=== PATIENT | female | born 1995 | race African-American/Black ===

== ENCOUNTER 2019-02-11 23:35 | Emergency (ER) | payer SELFPAY ==
--- NOTE | 2019-02-11 23:37 | ER Report ---
History and Physical Time Seen By MD: 23:37 HPI/ROS CHIEF COMPLAINT: Abdominal pain, vomiting HISTORY OF PRESENT ILLNESS: 23-year-old black female presents ambulatory to the ER complaining of severe epigastric pain and vomiting after eating at all, but at [place]. It's onset proximal 2 hours afterwards. She began vomiting. She feels dizzy. She complains of 6/10 crampy pain without radiation. She notes no diarrhea. She denies fever or chills. She denies dysuria. She's had no previous abdominal surgeries. Patient's currently on her menstrual period REVIEW OF SYSTEMS: Respiratory: No cough, no dyspnea. Cardiovascular: No chest pain, no palpitations. Gastrointestinal: As above Musculoskeletal: No back pain. Allergies: Coded Allergies: shellfish derived (Verified Allergy, Severe, ANAPHALAXSIS, 02/11/19) Home Meds Active Scripts Promethazine Hcl (PROMETHAZINE HCL) 25 Mg Tablet, 25 MG PO Q4H PRN for NAUSEA/VOMITING, #12 TAB Prov:REY PAUL DO 02/12/19 Reported Medications Ferrous Sulfate, Dried (IRON) 159 Mg Tablet.er, PO QDAY 02/11/19 Folic Acid (FOLIC ACID) 1 Mg Tablet, PO QDAY, TAB 02/11/19 [ Control] No Conflict Check, 1 TAB PO QDAY 02/11/19 Past Medical/Surgical History History of kidney disease, history of iron deficiency anemia Reviewed Nurses Notes: Yes Old Medical Records Reviewed: Yes Constitutional Vital Sign - Last 24 Hours 02/11/19 02/11/19 02/12/19 02/12/19 23:39 23:45 00:00 00:15 Temp 97.8 Pulse 91 83 77 81 Resp 16 B/P (MAP) 128/82 116/81 (93) Pulse Ox 93 94 99 94 02/12/19 02/12/19 02/12/19 00:30 00:45 01:00 Pulse 79 80 78 Resp 16 B/P (MAP) 114/77 (89) 112/67 (82) Pulse Ox 92 91 93 O2 Delivery Room Air Intake and Output 02/11/19 02/11/19 02/12/19 15:00 23:00 07:00 Intake Total 1000 ml Balance 1000 ml Physical Exam General Appearance: The patient is alert, has no immediate need for airway protection and no current signs of toxicity. Vital signs stable, afebrile, pulse ox normal Eyes: Pupils equal and round no injection. Respiratory: Chest is non tender, lungs are clear to auscultation. Cardiac: regular rate and rhythm Gastrointestinal: Abdomen is soft and non tender, no masses, bowel sounds normal. Musculoskeletal: Neck: Neck is supple and non tender. Extremities have full range of motion and are non tender. Skin: No rashes or lesions. DIFFERENTIAL DIAGNOSIS: After history and physical exam differential diagnosis was considered for abdominal pain including but not limited to appendicitis, cholecystitis, gastritis, food poisoning, gastroenteritis, viral syndrome and urinary tract infection. Medical Decision Making Data Points Result Diagram: 02/11/19 2345 02/11/19 2345 Laboratory Hematology Test 02/11/19 23:45 02/12/19 00:46 Red Blood Count 4.36 M/uL (4.17-5.56) Mean Corpuscular Volume 75.8 fL (80.0-96.0) Mean Corpuscular Hemoglobin 24.1 pg (26.0-33.0) Mean Corpuscular Hemoglobin Concent 31.8 g/dL (32.0-36.0) Red Cell Distribution Width 22.5 % (11.5-14.5) Mean Platelet Volume 8.8 fL (7.2-11.1) Neutrophils (%) (Auto) 49.8 % (39.4-72.5) Lymphocytes (%) (Auto) 39.9 % (17.6-49.6) Monocytes (%) (Auto) 7.4 % (4.1-12.4) Eosinophils (%) (Auto) 2.1 % (0.4-6.7) Basophils (%) (Auto) 0.8 % (0.3-1.4) Nucleated RBC Relative Count (auto) 0.2 /100WBC Neutrophils # (Auto) 3.9 K/uL (2.0-7.4) Lymphocytes # (Auto) 3.1 K/uL (1.3-3.6) Monocytes # (Auto) 0.6 K/uL (0.3-1.0) Eosinophils # (Auto) 0.2 K/uL (0.0-0.5) Basophils # (Auto) 0.1 K/uL (0.0-0.1) Nucleated RBC Absolute Count (auto) 0.02 K/uL Peripheral Blood Smear Yes Y/N Sodium Level 135 mmol/L (137-145) Potassium Level 3.8 mmol/L (3.5-5.0) Chloride Level 104 mmol/L (98-107) Carbon Dioxide Level 26 mmol/L (22-31) Blood Urea Nitrogen 11 mg/dl (7-18) Creatinine 1.00 mg/dl (0.52-1.04) Glomerular Filtration Rate Calc > 60.0 Random Glucose 94 mg/dl (75-110) Calcium Level 9.5 mg/dl (8.4-10.2) Total Bilirubin 0.2 mg/dl (0.2-1.3) Aspartate Amino Transf (AST/SGOT) 57 U/L (0-35) Alanine Aminotransferase (ALT/SGPT) 53 U/L (0-56) Alkaline Phosphatase 97 U/L (0-126) Total Protein 7.6 g/dl (6.3-8.2) Albumin 4.3 g/dl (3.5-5.0) Amylase Level 92 U/L (0-110) Lipase 99 U/L (23-300) Urine Color [place] Urine Clarity Cloudy Urine pH 6.0 pH (4.8-9.5) Urine Specific [place] 1.021 Urine Protein Negative mg/dL (NEGATIVE) Urine Glucose (UA) Negative mg/dL (NEGATIVE) Urine Ketones Trace mg/dL (NEGATIVE) Urine Blood Small (NEGATIVE) Urine Nitrite Negative (NEGATIVE) Urine Bilirubin Negative (NEGATIVE) Urine Urobilinogen 0.2 mg/dL (0.2-1.9) Urine Leukocyte Esterase Negative (NEGATIVE) Urine RBC 3 /HPF (0-2/HPF) Urine WBC 3 /HPF (0-5/HPF) Urine Squamous Epithelial Cells Many /LPF (</=FEW) Urine Bacteria Negative /HPF (NONE-FEW) Urine Mucus Few /HPF (NONE-FEW) Urine HCG, Qualitative Negative (NEGATIVE) Chemistry Test 02/11/19 23:45 02/12/19 00:46 White Blood Count 7.7 k/uL (4.5-11.0) Red Blood Count 4.36 M/uL (4.17-5.56) Hemoglobin 10.5 g/dL (12.0-16.0) Hematocrit 33.0 % (34.0-47.0) Mean Corpuscular Volume 75.8 fL (80.0-96.0) Mean Corpuscular Hemoglobin 24.1 pg (26.0-33.0) Mean Corpuscular Hemoglobin Concent 31.8 g/dL (32.0-36.0) Red Cell Distribution Width 22.5 % (11.5-14.5) Platelet Count 289 K/uL (150-450) Mean Platelet Volume 8.8 fL (7.2-11.1) Neutrophils (%) (Auto) 49.8 % (39.4-72.5) Lymphocytes (%) (Auto) 39.9 % (17.6-49.6) Monocytes (%) (Auto) 7.4 % (4.1-12.4) Eosinophils (%) (Auto) 2.1 % (0.4-6.7) Basophils (%) (Auto) 0.8 % (0.3-1.4) Nucleated RBC Relative Count (auto) 0.2 /100WBC Neutrophils # (Auto) 3.9 K/uL (2.0-7.4) Lymphocytes # (Auto) 3.1 K/uL (1.3-3.6) Monocytes # (Auto) 0.6 K/uL (0.3-1.0) Eosinophils # (Auto) 0.2 K/uL (0.0-0.5) Basophils # (Auto) 0.1 K/uL (0.0-0.1) Nucleated RBC Absolute Count (auto) 0.02 K/uL Peripheral Blood Smear Yes Y/N Glomerular Filtration Rate Calc > 60.0 Calcium Level 9.5 mg/dl (8.4-10.2) Total Bilirubin 0.2 mg/dl (0.2-1.3) Aspartate Amino Transf (AST/SGOT) 57 U/L (0-35) Alanine Aminotransferase (ALT/SGPT) 53 U/L (0-56) Alkaline Phosphatase 97 U/L (0-126) Total Protein 7.6 g/dl (6.3-8.2) Albumin 4.3 g/dl (3.5-5.0) Amylase Level 92 U/L (0-110) Lipase 99 U/L (23-300) Urine Color [place] Urine Clarity Cloudy Urine pH 6.0 pH (4.8-9.5) Urine Specific [place] 1.021 Urine Protein Negative mg/dL (NEGATIVE) Urine Glucose (UA) Negative mg/dL (NEGATIVE) Urine Ketones Trace mg/dL (NEGATIVE) Urine Blood Small (NEGATIVE) Urine Nitrite Negative (NEGATIVE) Urine Bilirubin Negative (NEGATIVE) Urine Urobilinogen 0.2 mg/dL (0.2-1.9) Urine Leukocyte Esterase Negative (NEGATIVE) Urine RBC 3 /HPF (0-2/HPF) Urine WBC 3 /HPF (0-5/HPF) Urine Squamous Epithelial Cells Many /LPF (</=FEW) Urine Bacteria Negative /HPF (NONE-FEW) Urine Mucus Few /HPF (NONE-FEW) Urine HCG, Qualitative Negative (NEGATIVE) Urinalysis Test 02/12/19 00:46 Urine Color [place] Urine Clarity Cloudy Urine pH 6.0 pH (4.8-9.5) Urine Specific [place] 1.021 Urine Protein Negative mg/dL (NEGATIVE) Urine Glucose (UA) Negative mg/dL (NEGATIVE) Urine Ketones Trace mg/dL (NEGATIVE) Urine Blood Small (NEGATIVE) Urine Nitrite Negative (NEGATIVE) Urine Bilirubin Negative (NEGATIVE) Urine Urobilinogen 0.2 mg/dL (0.2-1.9) Urine Leukocyte Esterase Negative (NEGATIVE) Urine RBC 3 /HPF (0-2/HPF) Urine WBC 3 /HPF (0-5/HPF) Urine Squamous Epithelial Cells Many /LPF (</=FEW) Urine Bacteria Negative /HPF (NONE-FEW) Urine Mucus Few /HPF (NONE-FEW) Urine HCG, Qualitative Negative (NEGATIVE) ED Course/Re-evaluation Clinical Indication for ER IV: Hydration, IV Access ED Course Patient was admitted to an examination room. H&P was done. The differential diagnoses was considered. Patient with a benign abdominal examination. She is treated with IV fluid hydration, Zofran and Toradol. Her laboratory studies are unremarkable. Patient's advised clear liquid diet for 24-48 hours. She is given a prescription for Phenergan. She is discharged with Phenergan prepack. Patient's advised ibuprofen and Tylenol for pain relief. Decision to Disposition Date: February 12, 2019 Decision to Disposition Time: 00:34 Depart Departure Latest Vital Signs Vital Signs Date Time Temp Pulse Resp B/P (MAP) Pulse Ox O2 Delivery O2 Flow Rate FiO2 02/12/19 01:00 78 16 112/67 (82 93 Room Air 02/11/19 23:39 97.8 Impression: Primary Impression: Food poisoning Additional Impressions: Vomiting Abdominal pain Iron deficiency anemia Condition: Improved Disposition: HOME OR SELF-CARE Referrals: CURT JEFFERY MD, FARRUKH MD New Scripts Promethazine Hcl (PROMETHAZINE HCL) 25 Mg Tablet 25 MG PO Q4H PRN for NAUSEA/VOMITING, #12 TAB Prov: REY PAUL DO 02/12/19 Patient Instructions: Clear Liquid Diet (ED), Food Poisoning (ED) Additional Instructions: Follow clear liquid diet for 24-48 hours, then advance to [place] diet, bananas, rice, applesauce and toast Use Phenergan to control vomiting as needed Use Tylenol and ibuprofen for pain relief. Follow-up with your primary care if unimproved in 3-5 days or see the physician listed on your paperwork here Problem Qualifiers Primary Impression: Food poisoning Encounter type: initial encounter Injury intent: accidental or unintentional Qualified Codes: T62.91XA - Toxic effect of unspecified noxious substance eaten as food, accidental (unintentional), initial encounter Additional Impressions: Vomiting Vomiting type: unspecified Vomiting Intractability: unspecified Nausea presence: unspecified Qualified Codes: R11.10 - Vomiting, unspecified Abdominal pain Abdominal location: epigastric Qualified Codes: R10.13 - Epigastric pain Iron deficiency anemia Iron deficiency anemia type: unspecified iron deficiency Qualified Codes: D50.9 - Iron deficiency anemia, unspecified REY PAUL DO February 11, 2019 23:37
[2019-02-11] MEDS ORDERED: FOLI-68 PO (23:45)
[2019-02-11] MEDS ORDERED: FERR159T PO (23:45)
[2019-02-11] MEDS ORDERED: BIRTH CONTROL PO (23:45)
[2019-02-11] MEDS ORDERED: NS(*) 0.9% 1000 ML BAG 1,000 ML IV ONE (23:48)
[2019-02-11] MEDS ORDERED: ONDANSETRON 4 MG/2 ML VIAL IVP ONE (23:50)
[2019-02-11] MEDS ORDERED: MECLIZINE HCL 25 MG TAB PO ONE (23:50)
[2019-02-11] MEDS ORDERED: KETOROLAC 30 MG/ML VIAL IVP ONE (23:50)
[2019-02-12 00:13] LABS: PLATELET COUNT, AUTOMATED 289 K/uL (150-450)
[2019-02-12] MEDS ORDERED: PROM-110 PO (00:35)
[2019-02-12] MEDS ORDERED: PROMETHAZINE HCL 25 MG TAB TH 2 TAB/BOTTLE PO ONE (00:40)
[2019-02-12 01:00] VITALS: BP 112/67
== END 2019-02-12 01:13 | disposition home or self-care (01) ==
LOC: ER 23:48
DX: T62.91XA Toxic effect of unspecified noxious substance eaten as food, accidental (unintentional), initial encounter (principal); D50.9 Iron deficiency anemia, unspecified
CPT/HCPCS: 81001; 81025; 82150; 83690; 85025; 96361; 96374; 96375; 99284; J1885; J2405; J7030; J8597; 82040; 82247; 82310; 82374; 82435; 82565; 82947; 84075; 84132; 84155; 84295; 84450; 84460; 84520